=== PATIENT | male | born 1950 | race Caucasian/White ===

== ENCOUNTER 2016-06-07 18:12 | Emergency (ER) | payer OTHER ==
[~2016-06-07] VITALS: Ht 182.9 cm; Wt 84.8 kg
[2016-06-07] MEDS ORDERED: ALPRAZOLAM1 MG PO ×2 (19:18→19:19)
[2016-06-07] MEDS ORDERED: BACLOFEN10 MG PO (19:20)
[2016-06-07] MEDS ORDERED: METHADONE10 MG PO (19:21)
[2016-06-07] MEDS ORDERED: SERTRALINE HCL100 MG PO (19:22)
[2016-06-07 19:32] LABS: BASOPHIL COUNT 0.1 K/uL (0-0.1); EOSINOPHIL (%) 0.1 % (0-5); HEMATOCRIT 49.6 % (38.0-50.0); IMMATURE GRANULOCYTE (%) 0.6 % (0.0-0.7); IMMATURE GRANULOCYTE COUNT 0.6 K/uL; LYMPHOCYTE COUNT 1.4 K/uL (1.0-2.8); MCH 29.4 PG (29.0-34.0); MCHC 33.9 G/DL (30.0-36.0); MCV 86.9 FL (86-99); MONOCYTE (%) 10.9 % (3-12); MONOCYTE COUNT 1.2 K/uL (0-0.8); NEUTROPHIL COUNT 8.1 K/uL (1.8-6.4); PLATELET COUNT 194 K/uL (156-360); RBC DIS.WIDTH-CV 14.2 % (11.8-14.6); RBC DIS.WIDTH-SD 45.4 % (39-53); RED BLOOD COUNT 5.71 M/uL (4.00-5.50); WHITE BLOOD COUNT 10.8 K/uL (4.1-10.2)
[2016-06-07 19:50] LABS: CHLORIDE 98 mEq/L (99-109); POTASSIUM 4.4 mEq/L (3.7-5.4); SODIUM 134 mEq/L (136-147)
[2016-06-07 19:52] LABS: GLUCOSE 102 mg/dL (70-99)
[2016-06-07 19:53] LABS: ANION GAP 10 MEQ/L (2-14)
[2016-06-07 19:55] LABS: GFR ESTIMATE (CALCULATED) > 59 mL/min/; SERUM ETHYL ALCOHOL < 10 mg/dL
[2016-06-07 19:56] LABS: UREA NITROGEN (BUN) 15 mg/dL (9-23)
[2016-06-07 20:01] LABS: TROP-I INTERPRETATION NEGATIVE; TROPONIN-I < 0.01 ng/mL (0.0-0.30)
[2016-06-07] MEDS ORDERED: MOTRIN600 MG PO (23:23)
[2016-06-07 23:32] VITALS: BP 110/79
== END 2016-06-07 23:30 | disposition home or self-care (01) ==
LOC: EME 18:12
PROVIDERS: Emergency Medicine
PROC: 0HQ0XZZ Repair Scalp Skin, External Approach (ICD-10-PCS; principal; 2016-06-07)
DX: R55 Syncope and collapse (principal); S09.90XA Unspecified injury of head, initial encounter; S01.01XA Laceration without foreign body of scalp, initial encounter; W18.39XA Other fall on same level, initial encounter; Y92.008 Other place in unspecified non-institutional (private) residence as the place of occurrence of the external cause; F17.200 Nicotine dependence, unspecified, uncomplicated
CPT/HCPCS: 70450; 80048; 84484; 85025; 93005; 99281; 99285; G0480

== ENCOUNTER 2017-04-26 18:51 | Emergency (ER) | payer OTHER ==
[~2017-04-26] VITALS: Ht 182.9 cm; Wt 93.1 kg
[~2017-04-26 18:51] MED LIST: ALPRAZOLAM1 MG PO; BACLOFEN10 MG PO; METHADONE10 MG PO; MOTRIN600 MG PO; SERTRALINE HCL100 MG PO
[2017-04-26 19:38] VITALS: BP 146/80
== END 2017-04-26 19:38 | disposition home or self-care (01) ==
LOC: EME 18:51
DX: G89.29 Other chronic pain (principal); M25.511 Pain in right shoulder; Z79.891 Long term (current) use of opiate analgesic
CPT/HCPCS: 99281; 99283; J1100